=== PATIENT | male | born 1960 | race Caucasian/White ===

== ENCOUNTER → 2017-11-04 | Outpatient (CLI) | payer OTHER ==
[~2017-11-04] MED LIST: ALLDSR60 PO; ALLO100T PO; ASPI81TA28 PO; COLC0.6T54 PO; LOSA1TAB38 PO; LPT20 PO; MCR5 PO; METF1000 PO; MULT-190 PO; NAPR-201 PO; OPTIRAY 320 IV PRN; POTA1080 PO; PRLSR20 PO
--- NOTE | 2017-11-04 07:39 | DIAGNOSTIC IMAGING REPORT ---
ABD/PELVIS IV AND ORAL CONT CLINICAL HISTORY: 57 years-old Male presenting with K46.9 HerniaE VALUATE VENTRAL HERNIA E X0D E [id number]. TECHNIQUE: Multidetector CT of the abdomen and pelvis was performed after the administration of oral and intravenous contrast. IV contrast: 117 mL of Optiray 320. A dose lowering technique was used consistent with the principles of ALARA (as low as reasonably achievable). COMPARISON: 09/02/2013. CT DOSE (mGy.cm): The estimated cumulative dose is 2080.40 mGy.cm. FINDINGS: [employer] topogram: Unremarkable. Lung bases: Minimal basilar opacities, likely atelectasis. Normal heart size. Coronary artery and aortic valve calcification. No pericardial or pleural effusion. Liver: Normal morphology. Density suggestive of hepatic steatosis. No focal lesion. Patent hepatic vasculature. Biliary: No intrahepatic or extrahepatic biliary ductal dilatation. Normal gallbladder. Pancreas: Mild parenchymal atrophy. Spleen: Normal. Adrenal glands: Normal. Kidneys and ureters: Punctate nonobstructing calculus at the lower pole the right kidney. No additional right renal calculus. Few punctate nonobstructing calculi noted at the lower pole of the left kidney, the largest measuring 3 mm. Trace perinephric fat stranding, nonspecific. A cortical defect in the lateral aspect of the lower pole the right kidney may represent prior infarct, infection or chronic reflux nephropathy. This defect was likely present on the prior exam. No hydronephrosis. Ureters are nondistended. Bladder: Circumferential bladder wall thickening allowing for underdistention. Pelvic organs: Prostate and seminal vesicles normal. Bowel: There has been interval increase in size of the sigmoid lipoma, which now measures 4.3 cm in maximal diameter, previously 2.8 cm. No bowel obstruction results. The appendix is normal. Peritoneal cavity: No free fluid or intraperitoneal gas. Lymph nodes: No enlarged lymph nodes in the abdomen or pelvis. Vasculature: Atherosclerosis of the normal caliber abdominal aorta. IVC patent. Bilateral varicoceles may be present. Abdominal wall: Fat-containing umbilical hernia. The neck of the hernia measures 2.5 cm, which is comparable to the maximal transverse diameter of the hernia sac. No associated fluid or inflammatory change. No other hernia identified. Musculoskeletal: Degenerative changes of the spine. Trabecular coarsening and cortical thickening along the proximal right femur suggests Paget's disease. This is unchanged from prior. IMPRESSION: 1. Small fat-containing umbilical hernia. No findings to suggest strangulation of the hernia sac. 2. Bilateral nonobstructing nephrolithiasis. 3. Possible chronic bladder outlet obstruction. 4. Hepatic steatosis. 5. Interval increase in size of the 4.3 cm sigmoid lipoma. No bowel obstruction. Electronically signed by: Darshan Guzman M.D. 11/04/2017 7:38 AM Dictated Date/Time: 11/04/2017 7:29 AM
== END | disposition home or self-care (01) ==
LOC: C.CTS 06:44
PROVIDERS: ATTEND Surgery
DX: K46.9 Unspecified abdominal hernia without obstruction or gangrene (principal); N20.0 Calculus of kidney; K76.0 Fatty (change of) liver, not elsewhere classified; D17.79 Benign lipomatous neoplasm of other sites